=== PATIENT | female | born 1990 | race Caucasian/White ===

== ENCOUNTER 2021-02-26 17:47 | Emergency (ER) | payer SELFPAY ==
[2021-02-27] MEDS ORDERED: CEPH500C PO (00:09)
[2021-02-27] MEDS ORDERED: MUPI22OI2 TP (00:09)
== END 2021-02-26 22:40 | disposition left against medical advice (07) ==
LOC: ER 17:47
DX: S81.852A Open bite, left lower leg, initial encounter (principal); S81.851A Open bite, right lower leg, initial encounter; Z53.21 Procedure and treatment not carried out due to patient leaving prior to being seen by health care provider; W57.XXXA Bitten or stung by nonvenomous insect and other nonvenomous arthropods, initial encounter; Y93.89 Activity, other specified; Y92.89 Other specified places as the place of occurrence of the external cause; Y99.8 Other external cause status

== ENCOUNTER 2021-02-26 23:07 | Emergency (ER) | payer SELFPAY ==
[~2021-02-26] VITALS: Ht 162.6 cm; Wt 104.5 kg
[2021-02-27] VITALS: BP 124/76
[2021-02-27] MEDS ORDERED: CEPH500C PO (00:09)
[2021-02-27] MEDS ORDERED: MUPI22OI2 TP (00:09)
--- NOTE | 2021-02-27 00:09 | PHYS DOC ---
General Adult EDM: Chief Complaint: INSECT BITE HPI: HPI: Patient is a 30 year old female who presents with bug bites to her bilateral ankles that are open and appear as though they have been picked at. She states they have been there for the last 2 weeks and she has been putting neosporin and peroxide on it. She now has redness and burning aroung one insect bite tot he left medial ankle. Rate her discomfort at a 7/10. Denies fever, body aches, nausea, vomiting, diarrhea, chest pain, soa, headache, dizziness. Review of Systems: Review of Systems: Constitutional: Denies fever or chills. [] Eyes: Denies change in visual acuity. [] HENT: Denies nasal congestion or sore throat. [] Respiratory: Denies cough or shortness of breath. [] Cardiovascular: Denies chest pain or edema. [] GI: Denies abdominal pain, nausea, vomiting, bloody stools or diarrhea. [] : Denies dysuria. [] Musculoskeletal: Denies back pain or joint pain. [] Integument: Denies rash. [] Neurologic: Denies headache, focal weakness or sensory changes. [] Endocrine: Denies polyuria or polydipsia. [] Lymphatic: Denies swollen glands. [] Psychiatric: Denies depression or anxiety. [] Heart Score: C/O Chest Pain: No Risk Factors: Risk Factors: DM, Current or recent (<one month) smoker, HTN, HLP, family history of CAD, obesity. Risk Scores: Score 0 - 3: 2.5% MACE over next 6 weeks - Discharge Home Score 4 - 6: 20.3% MACE over next 6 weeks - Admit for Clinical Observation Score 7 - 10: 72.7% MACE over next 6 weeks - Early Invasive Strategies Physical Exam: PE: Constitutional: Well developed, well nourished, no acute distress, non-toxic appearance. [] HENT: Normocephalic, atraumatic, bilateral external ears normal, oropharynx moist, no oral exudates, nose normal. [] Eyes: PERRLA, EOMI, conjunctiva normal, no discharge. [] Neck: Normal range of motion, no tenderness, supple, no stridor. [] Cardiovascular:Heart rate regular rhythm, no murmur [] Lungs & Thorax: Bilateral breath sounds clear to auscultation [] Abdomen: Bowel sounds normal, soft, no tenderness, no masses, no pulsatile masses. [] Skin: Warm, dry, no erythema, no rash. Bilateral ankle open or healing bug bites or picking wounds. small cellulitis forming around the left medial ankle bite. [] Back: No tenderness, no CVA tenderness. [] Extremities: No tenderness, no cyanosis, no clubbing, ROM intact, no edema. [] Neurologic: Alert and oriented X 3, normal motor function, normal sensory function, no focal deficits noted. [] Psychologic: Affect normal, judgement normal, mood normal. [] EKG: EKG: [] Radiology/Procedures: Radiology/Procedures: [] Course & Med Decision Making: Course & Med Decision Making Pertinent Labs and Imaging studies reviewed. (See chart for details) See HPI. Alert and oriented x4. Ambulatory steady gait. Speaks in full clear sentences. Skin pink warm and dry. Pedal pulses strong are present. Cap refill less than 2 seconds. Ambulatory with a steady gait. Patient has a open smaller than dime sized picking type wound with a small area of cellulitis starting around it to the left medial ankle. Has multiple picking wounds are bug bites around by her bilateral ankles and on the top of her feet. She denies any drug use or needle use. No abscess is seen. No drainage from these areas seen. She is afebrile. There is no swelling. [] Jacindaon Disclaimer: [place] Disclaimer: This electronic medical record was generated, in whole or in part, using a voice recognition dictation system. Departure Departure Impression: Primary Impression: Bug bite without infection Qualified Codes: W57.XXXA - Bitten or stung by nonvenomous insect and other nonvenomous arthropods, initial encounter Disposition: HOME / SELF CARE / HOMELESS Condition: STABLE Referrals: NO PCP (PCP) Patient Instructions: Insect Bite, Wound Infection Additional Instructions: Follow-up with a primary care provider if needed. Take medication as prescribed and with food. Use ointment as prescribed. Keep the areas clean and covered. Scripts Mupirocin (MUPIROCIN OINTMENT) 22 Gm Oint...g. 1 ANGELA TP TID for WOUND CARE, #1 EACH Prov: MAHNAZ CARRANZA CONTENT MANAGEMENT CONSULTANT 9/8/21 Cephalexin (KEFLEX) 500 Mg Capsule 1 CAP PO TID, #30 CAP Prov: MAHNAZ CARRANZA APRN 02/27/21 MAHNAZ CARRANZA APRN Feb 27, 2021 00:09
== END 2021-02-27 00:48 | disposition home or self-care (01) ==
LOC: ER 23:07
DX: S90.562A Insect bite (nonvenomous), left ankle, initial encounter (principal); S90.561A Insect bite (nonvenomous), right ankle, initial encounter; W57.XXXA Bitten or stung by nonvenomous insect and other nonvenomous arthropods, initial encounter; Y93.89 Activity, other specified; Y92.89 Other specified places as the place of occurrence of the external cause; Y99.8 Other external cause status
CPT/HCPCS: 81025; 99283